=== PATIENT | male | born 1980 | race Two or more races ===

== ENCOUNTER 2021-03-21 18:02 | Emergency (ER) | payer SELFPAY ==
[~2021-03-21] VITALS: Ht 177.8 cm; Wt 75.0 kg
[2021-03-21] MEDS ORDERED: LISINOPRIL 20 MG TABLET PO ONE (18:45)
[2021-03-21 19:01] LABS: BASO % 0 % (0-3); EOS % 0 % (0-3); HEMATOCRIT 40.7 % (39.0-53.0); HEMOGLOBIN 14.4 g/dL (13.0-17.5); LYMPH % 18 % (24-48); MEAN CORPUSCULAR HEMOGLOBIN 31 pg (25-35); MEAN CORPUSCULAR HGB CONC 35 g/dL (31-37); MEAN CORPUSCULAR VOLUME 88 fL (79-100); MONO # 0.4 x10^3/uL (0.0-1.1); MONO % 8 % (0-9); NEUT # 3.9 x10^3/uL (1.8-7.7); NEUT % 73 % (31-73); PLATELET COUNT 152 x10^3/uL (140-400); RED BLOOD COUNT 4.65 x10^6/uL (4.30-5.70); RED CELL DISTRIBUTION WIDTH 12.3 % (11.5-14.5); WHITE BLOOD COUNT 5.4 x10^3/uL (4.0-11.0)
[2021-03-21 19:12] LABS: CALCIUM 7.9 mg/dL (8.5-10.1); CREATININE 0.9 mg/dL (0.7-1.3); GFR 92.5; POTASSIUM 3.5 mmol/L (3.5-5.1)
[2021-03-21 19:14] LABS: INFLUENZA A PATIENT NEGATIVE (NEGATIVE); INFLUENZA B PATIENT NEGATIVE (NEGATIVE)
[2021-03-21 19:15] LABS: ALBUMIN 3.5 g/dL (3.4-5.0); ALBUMIN/GLOBULIN RATIO 0.9 (1.0-1.7); TOTAL BILIRUBIN 0.6 mg/dL (0.2-1.0); TOTAL PROTEIN 7.5 g/dL (6.4-8.2)
--- NOTE | 2021-03-21 19:23 | PHYS DOC ---
Past Medical History Past Medical History: Asthma, High Cholesterol, Hypertension Past Surgical History: No Surgical History Smoking Status: Never Smoker Alcohol Use: None Drug Use: None General Adult EDM: Chief Complaint: FLU SYMPTOM HPI: HPI: Patient is a 40 year old speaking male who presents with 1 week history of cough with sputum, fatigue and subjective fever. Patient reports an associated episode of emesis today. He states that for the most part, his symptoms have resolved, but he wants to get "checked out." Patient reports he has a history of high cholesterol, asthma and high blood pressure. He ran out of his lisinopril 20 mg two weeks ago. Patient denies chest pain, palpitations, shortness of breath, abdominal pain, diarrhea, constipation. Patient has no other complaints at this time. Review of Systems: Review of Systems: 12 systems reviewed. ROS negative except as mentioned in HPI. Heart Score: C/O Chest Pain: No Current Medications: Current Medications Medications (Trade) Dose Ordered Sig/Juana Start Time Stop Time Status Last Admin Dose Admin Lisinopril (Prinivil) 20 mg 1X ONCE 03/21/21 18:45 03/21/21 18:47 DC 03/21/21 18:57 20 MG Allergies: Allergies: Allergies Coded Allergies Type Severity Reaction Last Updated Verified No Known Drug Allergies 03/21/21 No Physical Exam: PE: Constitutional: Well developed, well nourished, no acute distress, non-toxic appearance. HENT: Normocephalic, atraumatic, bilateral external ears normal, oropharynx moist, nose normal. Eyes: PERRLA, EOMI, conjunctiva normal, no discharge. Cardiovascular: Heart rate regular rhythm, no murmur. Lungs & Thorax: Bilateral breath sounds clear to auscultation. Abdomen: Bowel sounds normal, soft, no tenderness, no masses, no pulsatile masses. Neurologic: Alert and oriented x3, normal motor function, normal sensory function, no focal deficits noted. Current Patient Data: Labs: Laboratory Tests Test 03/21/21 18:49 03/21/21 18:50 Influenza Type A Antigen Negative (NEGATIVE) Influenza Type B Antigen Negative (NEGATIVE) White Blood Count 5.4 x10^3/uL (4.0-11.0) Red Blood Count 4.65 x10^6/uL (4.30-5.70) Hemoglobin 14.4 g/dL (13.0-17.5) Hematocrit 40.7 % (39.0-53.0) Mean Corpuscular Volume 88 fL (79-100) Mean Corpuscular Hemoglobin 31 pg (25-35) Mean Corpuscular Hemoglobin Concent 35 g/dL (31-37) Red Cell Distribution Width 12.3 % (11.5-14.5) Platelet Count 152 x10^3/uL (140-400) Neutrophils (%) (Auto) 73 % (31-73) Lymphocytes (%) (Auto) 18 % (24-48) L Monocytes (%) (Auto) 8 % (0-9) Eosinophils (%) (Auto) 0 % (0-3) Basophils (%) (Auto) 0 % (0-3) Neutrophils # (Auto) 3.9 x10^3/uL (1.8-7.7) Lymphocytes # (Auto) 1.0 x10^3/uL (1.0-4.8) Monocytes # (Auto) 0.4 x10^3/uL (0.0-1.1) Eosinophils # (Auto) 0.0 x10^3/uL (0.0-0.7) Basophils # (Auto) 0.0 x10^3/uL (0.0-0.2) Sodium Level 139 mmol/L (136-145) Potassium Level 3.5 mmol/L (3.5-5.1) Chloride Level 100 mmol/L (98-107) Carbon Dioxide Level 28 mmol/L (21-32) Anion Gap 11 (6-14) Blood Urea Nitrogen 18 mg/dL (8-26) Creatinine 0.9 mg/dL (0.7-1.3) Estimated GFR (Cockcroft-Gault) 92.5 BUN/Creatinine Ratio 20 (6-20) Glucose Level 110 mg/dL (70-99) H Calcium Level 7.9 mg/dL (8.5-10.1) L Total Bilirubin Pending Aspartate Amino Transferase (AST) Pending Alanine Aminotransferase (ALT) Pending Alkaline Phosphatase Pending Total Protein Pending Albumin Pending Albumin/Globulin Ratio Pending Laboratory Tests 03/21/21 18:50 Laboratory Tests 03/21/21 18:50 Vital Signs: Vital Signs Date Time Temp Pulse Resp B/P (MAP) Pulse Ox O2 Delivery O2 Flow Rate FiO2 10/26/21 18:57 105 162/90 03/21/21 18:20 99.1 105 16 162/90 (114) 95 Room Air 99.1 Radiology/Procedures: Radiology/Procedures: Initial x-ray read performed by Dr. Nelson in the emergency department: Diffuse interstitial infiltrates seen bilaterally, possibly community-acquired pneumonia. Course & Med Decision Making: Course & Med Decision Making Pertinent Labs and Imaging studies reviewed. (See chart for details) Patient is nontoxic-appearing and exam is unremarkable. Work-up today will include swabs for COVID flu as well as blood work. He was prescribed 20 mg lisinopril previously, but ran out of his prescription. He was provided with 20 mg lisinopril in the department today. On reevaluation, patient's blood pressure has come down and he is no longer tachycardic at 93 bpm. Chest x-ray added to work-up. Chest x-ray reveals patchy interstitial infiltrates bilaterally. He will be treated for atypical community-acquired pneumonia with Z-Ryan. He was given his first dose here in the department, so he will take 250 qd for the next 4 days. He is aware that he should quarantine until he gets COVID swab results. He may alternate taking Tylenol and ibuprofen every 4 hours as needed for his myal gias/body discomfort. Patient is advised to obtain a primary care doctor for management of his chronic health issues. Patient understands and is agreeable to discharge plan. Armando Disclaimer: Armando Disclaimer: This electronic medical record was generated, in whole or in part, using a voice recognition dictation system. Departure Departure Impression: Primary Impression: Viral syndrome Additional Impression: Elevated blood pressure reading Disposition: HOME / SELF CARE / HOMELESS Condition: STABLE Referrals: NO PCP (PCP) Patient Instructions: Managing Your High Blood Pressure, Viral Syndrome Additional Instructions: Quedate en casa hasta el swab de covid esta resultado. Puede ori Tylenol y Advil (alterna el medicamento cada 4 horas) para el descomodo del cuerpo y fiebre, si tiene asim. Regresa al departamento si tiene sintomas nuevas. Scripts Azithromycin (AZITHROMYCIN TABLET) 250 Mg Tablet 250 MG PO DAILY for ANTI-BIOTIC for 4 Days, #4 TAB 0 Refills Prov: CAREN HERNANDEZ 03/21/21 Lisinopril (LISINOPRIL) 20 Mg Tablet 1 TAB PO DAILY, #30 TAB 2 Refills Prov: CAREN HERNANDEZ 03/21/21 CAREN HERNANDEZ Mar 21, 2021 19:22
[2021-03-21] MEDS ORDERED: LISI20TA18 PO (20:12)
[2021-03-21 20:56] VITALS: BP 124/76
[2021-03-21] MEDS ORDERED: AZIT250T6 PO (21:03)
--- NOTE | 2021-03-21 21:05 | RAD ---
EXAM: XR CHEST 1V 03/21/2021 8:13 PM CLINICAL INDICATION: Cough, fever, PUI. COMPARISON: None TECHNIQUE: AP upright view of the chest FINDINGS: The heart and mediastinum are normal. Lungs are adequately expanded. There are mild patchy bilateral opacities, greatest in the lung peripheries. No pleural effusion or pneumothorax. No acute osseous abnormality. IMPRESSION: Mild multifocal opacities suspicious for atypical pneumonia. Electronically signed by: Tia Montesinos MD (03/21/2021 9:02 PM) [id number]
[2021-03-21] MEDS ORDERED: AZITHROMYCIN 250 MG TABLET. PO ONE (21:30)
--- NOTE | 2021-03-22 16:55 | NUR ---
IP: Informed pt of positive covid test. However, pt speaks very little [place] but did verbalized he understood the positive test.
[2021-03-23] MEDS ORDERED: IOHEXOL 300 MG/ML 100ML VIAL. ONE (23:27)
== END 2021-03-21 21:20 | disposition home or self-care (01) ==
LOC: ER 18:02
DX: B34.9 Viral infection, unspecified (principal); Z20.822 Contact with and (suspected) exposure to COVID-19; I10 Essential (primary) hypertension; J45.909 Unspecified asthma, uncomplicated; E78.00 Pure hypercholesterolemia, unspecified
CPT/HCPCS: 36415; 71045; 80053; 85025; 87804; 99285; U0003; U0005